=== PATIENT | female | born 1995 | race Two or more races ===

== ENCOUNTER 2024-03-17 15:06 | Outpatient (CLI) | payer OTHER ==
[~2024-03-17 15:06] MED LIST: FERROUS SULFAT325 MG PO; IBUPROFEN800 MG PO; PRENATABS RX T1 EACH
== END 2024-03-17 15:16 | disposition home or self-care (01) ==
LOC: LAB 15:06
PROVIDERS: ATTEND Specialist
DX: L02.91 Cutaneous abscess, unspecified (principal)

== ENCOUNTER 2024-06-01 13:55 | Outpatient (CLI) | payer OTHER | END 2024-06-01 14:17 | disposition home or self-care (01) | LOC: LAB 13:55 | PROVIDERS: ATTEND Specialist | DX: L02.91 Cutaneous abscess, unspecified (principal) ==

== ENCOUNTER 2024-07-20 15:06 | Outpatient (CLI) | payer OTHER | END 2024-07-20 15:12 | disposition home or self-care (01) | LOC: LAB 15:06 | PROVIDERS: ATTEND Specialist | DX: L02.91 Cutaneous abscess, unspecified (principal) ==